=== PATIENT | female | born 1945 ===

== ENCOUNTER 2021-02-02 20:49 | Emergency (ER) | payer MEDICARE, MEDICAID ==
[~2021-02-02] VITALS: Ht 160 cm; Wt 80.0 kg
[2021-02-02 20:51] VITALS: BP 166/89
[2021-02-02] MEDS ORDERED: IBUPROFEN 600 MG TABLET PO ONE (22:00)
[2021-02-02] MEDS ORDERED: IBUPROFEN 600 MG TABLET ONE (22:34)
--- NOTE | 2021-02-02 23:14 | NUR ---
PT HAS C/O LEFT FOOT AND KNEE PAIN. PT MEDICATED PER NOV. PT ON MONITOR WITH PT VSS. PT DENIED ANY CURRENT WANTS OR NEEDS.
== END 2021-02-03 00:02 | disposition home or self-care (01) ==
LOC: ED 23:49
DX: S82.155A Nondisplaced fracture of left tibial tuberosity, initial encounter for closed fracture (principal); I10 Essential (primary) hypertension; E11.9 Type 2 diabetes mellitus without complications; J45.909 Unspecified asthma, uncomplicated; W01.0XXA Fall on same level from slipping, tripping and stumbling without subsequent striking against object, initial encounter; W10.9XXA Fall (on) (from) unspecified stairs and steps, initial encounter; Y93.89 Activity, other specified; Y92.410 Unspecified street and highway as the place of occurrence of the external cause; Y99.8 Other external cause status
CPT/HCPCS: 29505; 99284